=== PATIENT | male | born 2000 | race Caucasian/White ===

== ENCOUNTER 2022-09-25 17:31 | Emergency (ER) | payer OTHER, MEDICAID, SELFPAY ==
[2022-09-25] VITALS (17 sets, daily range): BP systolic 98–133; BP diastolic 52–78; PULSE 82–100; RESP 9–23; TEMP 36.4; O2SAT 94–100; BMI 25.2
[2022-09-25] MEDS: SODIUM CHLORIDE 0.9% 1,000 ML 1000 ML IV (18:03)
[2022-09-25 18:08] LABS: Add Manual Diff / Slide Review NO; Basophils Absolute Auto 100 /uL (0-100); Basophils Percent Auto 0.4 % (0-2); Eosinophils Absolute Auto 200 /uL (0-450); Eosinophils Percent Auto 1.6 % (2-4); Hematocrit 49.6 % (41-53); Hemoglobin 16.5 g/dL (13.5-17.5); Lymphocytes Absolute Auto 7700 /uL (1100-4500); Lymphocytes Percent Auto 50.3 % (25-40); Mean Corpuscular HGB Conc 33.4 % (30-36); Mean Corpuscular Volume 89.9 fL (80-100); Monocytes Absolute Auto 1600 /uL (0-900); Monocytes Percent Auto 10.7 % (3-14); Neutrophils Absolute Auto 5700 /uL (1500-7000); Platelet Count 433 X10^3/uL (150-400); Red Blood Cell Count 5.51 X10^6/uL (4.5-5.9); Red Cell Distribution Width 13.1 % (11.6-14.8); White Blood Cell Count 15.4 X10^3/uL (4.5-11.0)
[2022-09-25 18:14] LABS: Acetaminophen < 10 ug/mL (10-30); Alanine Aminotransferase 48 IU/L (<50); Albumin 5.5 g/dL (3.5-5.0); Albumin Globulin Ratio 1.4 (1.0-2.8); Alkaline Phosphatase 78 U/L (38-126); Aspartate Aminotransferase 39 IU/L (17-59); BUN Creatinine Ratio 10.3 (6-22); Bilirubin Total 0.6 mg/dL (0.2-1.3); Blood Urea Nitrogen 11 mg/dL (9-20); Calcium 9.6 mg/dL (8.4-10.2); Carbon Dioxide 15 mmol/L (22-32); Chloride 99 mmol/L (98-107); Estimated Glomerular Filt Rate > 60 mL/min (>60); Ethanol (ETOH) < 10 mg/dL; Globulin 3.9 g/dL (1.7-4.1); Glucose 115 mg/dL (70-100); HEMOLYSIS < 15 (0-50); Potassium 3.4 mmol/L (3.4-5.1); Salicylate < 1.0 mg/dL (<20); Sodium 144 mmol/L (137-145); Total Protein 9.4 g/dL (6.3-8.2)
--- NOTE | 2022-09-25 18:45 | CM.SWNOTE ---
Addendum entered by IAN Bentley 09/25/22 20:22: SW discussed voluntary hospitalization with pt and at first he reported that he wanted to go. SW called several facilities; [facility], [facility], [facility], [facility], and [facility] and was instructed to send packet in. SW met with pt again to provide update and pt believes that he can keep himself safe at home. SW met with SO, pt's father, and pt together and they are agreeable to returning home with a plan to go to ED if pt becomes suicidal again. Pt's SO and father will be around patient 24/7 and are willing to monitor. SW discussed with ED provider, who agrees with plan for pt to discharge home with a plan to return to ED if SI returns. IAN Bentley Original Note: STAFF SONOGRAPHER - Forepart Rounder Assessment STAFF SONOGRAPHER - Forepart Rounder Assessment Start: 09/25/22 18:34 Freq: Status: Active Protocol: Document 09/25/22 18:34 TM (Rec: 09/25/22 18:45 TM [id number]) STAFF SONOGRAPHER/Forepart Rounder Assessment Time Spent with Patient Start date 09/25/22 Visit Start Time 18:15 End date 09/25/22 Visit End Time 18:35 Mental Health Screening Include Onset, Duration, Intensity Presenting Problem Pt is 22 year old male with history of epilepsy and depression who reports to ED following a seizure. During nursing triage, pt reported suicidal ideation. Precipitating Event(s) Pt reports that his neurologist started him on lamotrigine for seizures and mood stabilization. Pt reports that approximately two weeks ago he felt extremely depressed, which is attributes partly to stress. Approximately 2 weeks ago pt felt suicidal and had a plan to hang himself. Pt reports that he tied a knot in a rope and had it around his neck but felt scared and did not follow through. Patient Strengths supportive family and significant other. Current Behavioral Health Provider(s) none. Neurologist prescribes Include Facility, Provider, Ph. # mood stabilizier. Psych. 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 Pt denies recreational substance use. Pt reports that he uses marijuana for seizures but he hasn't taken any in 5 days. Family Hx of Behavioral Abuse Pt denies. Psychiatric Hospitalizations (date(s)/ Pt reports that he was location) hospitalized voluntarily at a psychiatric hospital in 2020 for 4-5 days. Pt does not recall name of the facility. Psychosocial information & Support Pt has supportive parents and Systems SO. 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 Mental Status Orientation (Person/Place/Time) Pt oriented to person, place, and time. Stated Mood Pt reports that depression is off and on but he is no longer suicidal. Affect (Congruent with Mood?) Broad, congruent with mood. Thought Content - Specify/Describe Denies AH or VH. Obsessions, Delusions, Hallucinations Thought Processes (Ibtwpyo-Omccumna-Zvqd Logical. Phemkxgi-Koozzjnx-Wwsksjacny- Taiebqwvobnxvm-Vrsbezv-Tszrxbjmzloh- Thought Blocking) Speech (Wfcjev-Nkkb-Dqnjnco-Rapid-Soft- normal. Loud-Pressured) Motor (Vqhjgw-Mbfbamfcn-Bwxj-Other) normal. Insight (Uqov-Pqtj-Iine/Limited) Fair. Judgement (Kfir-Mpxf-Ysdm/Limited) Fair. Impulse Control (Adequate-Impaired) not tested. Memory (Bsvkimnzg-Ojbvuv-Yrvhnu, immediate - not formally Impaired-Intact) tested. Concentration (Intact-Impaired) intact. Attention (Intact-Impaired) intact. Behavior (Appropriate-Inappropriate) appropriate. Risk Assessment Suicidal Ideation (Plan) No Homicidal Ideation (Plan) No Intervention Intervention SW met pt and his SO at bedside to initiate MH evaluation. Pt reports that he is not currently feeling suicidal and that his depression is off and on. Pt denies substance abuse. Pt reports that he does not have access to weapons. Pt lives with his SO and parents. At this time, pt feels like he can keep himself safe. Pt reports that he has done voluntary inpatient psychiatric hospitalization in the past and that helped a lot. Pt reports that he wants to think about whether or not he wants to pursue psychiatric hospitalization a bit more. Plan RA Plan SW will provide outpatient MH resources. Once pt is medically clear, SW reimbursement coordinator will assess pt's safety and ask if he would like to pursue psychiatric hospitalization. Luna Abdi MSW
[2022-09-25] MEDS: LORazepam 2 MG/ML INJ 1 MG IV (19:01)
--- NOTE | 2022-09-25 19:02 | ED_ITS ---
HPI - Seizure General Chief Complaint: Seizure Stated Complaint: Seizure Time Seen by Provider: 09/25/22 17:52 Source: EMS Mode of arrival: EMS History of Present Illness HPI Narrative: Patient is a 22-year-old male history of seizures on direct CT ongoing mental health issues as well presents today after seizure. He states his seizures are usually small tremors typically well controlled. However he does have seizures likely triggered if he lack of sleep and lack of food. 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 He had a witnessed full tonic clonic seizure he has a chin laceration. He was postictal all. [facility] He has not missed any medications. He has a neurologist to follows with him at [facility]. He states that he does have chronic ongoing suicidal. 2 weeks ago he attempted hanging and noose around his neck. He does not have thoughts today all but feels like his thoughts are increasing. Is interested in involuntary placement. He does not have outpatient counseling therapy set up. He is on a seizure medicine which is also a mood stabilizer. Related Data Home Medications Medication Instructions Recorded Confirmed brivaracetam 50 mg tablet 50 mg PO DAILY 09/25/22 09/25/22 (Briviact) brivaracetam 50 mg tablet 100 mg PO BEDTIME 09/25/22 09/25/22 (Briviact) lamotrigine 100 mg tablet 200 mg PO BID 09/25/22 09/25/22 Allergies Allergy/AdvReac Type Severity Reaction Status Date / Time divalproex sodium AdvReac Severe Other Verified 09/25/22 18:02 [From [facility]] Review of Systems Review of Systems Narrative: GENERAL: Denies chills, fatigue, malaise, fever, sweats, travel HEENT: Denies sinus pain, ear pain, sore throat, difficulty swallowing, neck pain RESPIRATORY: Denies dyspnea, cough, wheezing, hemoptysis, sputum. CARDIOVASCULAR: Denies chest pain, palpitations, orthopnea, edema GASTROINTESTINAL: Denies nausea, vomiting, abdominal pain, diarrhea, constipation, melena. : Denies dysuria, frequency, incontinence, hematuria, urinary retention, flank pain. MUSCULOSKELETAL: Denies weakness, joint pain, or bony pain SKIN: Chin laceration NEUROLOGIC: Seizure PSYCHIATRIC: No concerning psychosocial issues. 12 point review of systems is negative except for those stated above and HPI Patient History Social History Smoking Status: Never smoker Smoking Status: Never smoker Substance Use Type: marijuana Exam Initial Vital Signs Initial Vital Signs: Vital Signs Temperature 97.5 F L 09/25/22 17:33 Pulse Rate 97 H 09/25/22 17:33 Respiratory Rate 17 09/25/22 17:33 Blood Pressure 120/75 09/25/22 17:33 Pulse Oximetry 100 09/25/22 17:33 Oxygen Delivery Method 09/25/22 17:33 GENERAL: Alert well-appearing 22-year-old male HEENT: Head atraumatic,EOMI, pupils reactive, face symmetric, moist mucous membranes, no tongue injury complaining of chin pain able to bite down on popsicle stick teeth line no obvious facial fracture CARDIOVASCULAR: Regular rate and rhythm without murmurs, rubs or gallops. RESPIRATORY: Breath sounds equal bilaterally, no wheezes rales or rhonchi. ABDOMEN: Soft, nontender. Normoactive bowel sounds all 4 quadrants. No guarding or rebound. EXTREMITIES: Normal range of motion, no clubbing or edema. Neurovascularly intact NEUROLOGICAL: Alert and oriented x4.Normal gait and speech. Nib Finisher strength equal bilaterally SKIN: To cm chin laceration Procedures Laceration Repair Laceration 1: Site: face (chin) Size (cm): 2 Depth: simple, single layer Local Anesthetic: lidocaine 2% Skin layer closed with: nylon Skin layer suture size: 4-0 Number of sutures: 2 Course Orders Ordered: ED Orders 09/25/22 20:40 XR mandible min 4V Stat Discontinued Medications Sodium Chloride (Normal Saline 0.9%) 1,000 mls @ 1,000 mls/hr IV BOLUS ONE Stop: 09/25/22 18:51 Last Infusion: 09/25/22 18:57 Dose: 0 mls/hr Documented By: Admin: 09/25/22 18:03 Dose: 1,000 mls/hr Documented By: RL Ketorolac Tromethamine (Ketorolac 30 Mg/Ml Vial) 15 mg IV NOW ONE Stop: 09/25/22 20:43 Last Admin: 09/25/22 20:48 Dose: 15 mg Documented By: CTS Lidocaine HCl (Lidocaine 1% (Pf)) 2 ml SUBCUT NOW ONE Stop: 09/25/22 19:04 Last Admin: 09/25/22 19:32 Dose: Not Given Documented By: RL Lidocaine HCl (Lidocaine 2% Inj Sdv) 10 ml INJ INTRA-OP ONE Stop: 09/25/22 19:29 Last Admin: 09/25/22 19:32 Dose: 5 ml Documented By: RL Lorazepam (Lorazepam 2 Mg/Ml Inj) 1 mg IV NOW ONE Stop: 09/25/22 18:59 Last Admin: 09/25/22 19:01 Dose: 1 mg Documented By: RL Vital Signs Vital signs: Vital Signs - 8 hr 09/25/22 17:33 09/25/22 17:46 09/25/22 17:55 Temperature 97.5 F L Pulse Rate 97 H 92 H 82 Respiratory Rate 17 14 12 Blood Pressure 120/75 Pulse Oximetry 100 98 97 Oxygen Delivery Method Room Air 09/25/22 17:55 09/25/22 18:00 09/25/22 18:30 Temperature Pulse Rate 84 83 Respiratory Rate 23 12 Blood Pressure 121/78 Pulse Oximetry 99 99 Oxygen Delivery Method 09/25/22 18:45 09/25/22 18:45 09/25/22 19:00 Temperature Pulse Rate 84 Respiratory Rate 19 Blood Pressure 116/76 116/72 Pulse Oximetry 99 Oxygen Delivery Method 09/25/22 19:00 Temperature Pulse Rate 87 Respiratory Rate 12 Blood Pressure Pulse Oximetry 100 Oxygen Delivery Method MDM - Seizure Lab Data Result diagrams: 09/25/22 17:45 09/25/22 17:45 Labs: Lab Results 09/25/22 09/25/22 09/25/22 Range/Units 17:45 17:45 17:45 WBC 15.4 H (4.5-11.0) X10^3/uL RBC 5.51 (4.5-5.9) X10^6/uL Hgb 16.5 (13.5-17.5) g/dL Hct 49.6 (41-53) % MCV 89.9 (80-100) fL MCH 30.0 (26-34) PG MCHC 33.4 (30-36) % RDW 13.1 (11.6-14.8) % Plt Count 433 H (150-400) X10^3/uL Neut % (Auto) 37.0 L (50-75) % Lymph % (Auto) 50.3 H (25-40) % [place] % (Auto) 10.7 (3-14) % Eos % (Auto) 1.6 L (2-4) % Baso % (Auto) 0.4 (0-2) % Neut # (Auto) 5700 (3000-5257) /uL Lymph # (Auto) 7700 H (5912-1452) /uL [place] # (Auto) 1600 H (0-900) /uL Eos # (Auto) 200 (0-450) /uL Baso # (Auto) 100 (0-100) /uL Sodium 144 (137-145) mmol/L Potassium 3.4 (3.4-5.1) mmol/L Chloride 99 (98-107) mmol/L Carbon Dioxide 15 L (22-32) mmol/L BUN 11 (9-20) mg/dL Creatinine 1.07 (0.66-1.25) mg/dL Estimated GFR > 60 (>60) mL/min BUN/Creatinine Ratio 10.3 (6-22) Glucose 115 H (70-100) mg/dL Calcium 9.6 (8.4-10.2) mg/dL Total Bilirubin 0.6 (0.2-1.3) mg/dL AST 39 (17-59) IU/L ALT 48 (<50) IU/L Alkaline Phosphatase 78 (38-126) U/L Total Protein 9.4 H (6.3-8.2) g/dL Albumin 5.5 H (3.5-5.0) g/dL Globulin 3.9 (1.7-4.1) g/dL Albumin/Globulin Ratio 1.4 (1.0-2.8) Prolactin 35.5 H (3.7-17.9) ng/mL Urine Color Urine Appearance Urine pH (4.5-8.0) Ur Specific [place] (1.000-1.035) Urine Protein (Negative) Urine Glucose (UA) (Negative) g/dL Urine Ketones (NEGATIVE) Urine Occult Blood (Negative) Urine Nitrate (Negative) Urine Bilirubin (NEGATIVE) Urine Urobilinogen (0.2) E.U./dL Ur Leukocyte Esterase (NEGATIVE) Urine RBC (0-5/HPF) Urine WBC (0-5/HPF) Urine Bacteria (None) Hyaline Casts (None) Urine Sperm Ur Culture Indicated? Salicylates < 1.0 (<20) mg/dL U Opiates 300ng/mL cut (Negative) Ur Oxycodone Screen (Negative) Urine Methadone Screen (Negative) Acetaminophen < 10 (10-30) ug/mL Ur Barbiturates Screen (Negative) U Tricyclic Antidepress (Negative) Ur Phencyclidine Scrn (Negative) Ur Amphetamines Screen (Negative) U Methamphetamines Scrn (Negative) Ur MDMA Scrn (Ecstasy) (Negative) U Benzodiazepines Scrn (Negative) Urine Cocaine Screen (Negative) U Marijuana (THC) Screen (Negative) Ethyl Alcohol < 10 ( - 10) mg/dL SARS-CoV-2 (PCR) (Negative) 09/25/22 09/25/22 09/25/22 Range/Units 20:07 20:07 20:13 WBC (4.5-11.0) X10^3/uL RBC (4.5-5.9) X10^6/uL Hgb (13.5-17.5) g/dL Hct (41-53) % MCV (80-100) fL MCH (26-34) PG MCHC (30-36) % RDW (11.6-14.8) % Plt Count (150-400) X10^3/uL Neut % (Auto) (50-75) % Lymph % (Auto) (25-40) % [place] % (Auto) (3-14) % Eos % (Auto) (2-4) % Baso % (Auto) (0-2) % Neut # (Auto) (2703-0610) /uL Lymph # (Auto) (3627-4191) /uL [place] # (Auto) (0-900) /uL Eos # (Auto) (0-450) /uL Baso # (Auto) (0-100) /uL Sodium (137-145) mmol/L Potassium (3.4-5.1) mmol/L Chloride (98-107) mmol/L Carbon Dioxide (22-32) mmol/L BUN (9-20) mg/dL Creatinine (0.66-1.25) mg/dL Estimated GFR (>60) mL/min BUN/Creatinine Ratio (6-22) Glucose (70-100) mg/dL Calcium (8.4-10.2) mg/dL Total Bilirubin (0.2-1.3) mg/dL AST (17-59) IU/L ALT (<50) IU/L Alkaline Phosphatase (38-126) U/L Total Protein (6.3-8.2) g/dL Albumin (3.5-5.0) g/dL Globulin (1.7-4.1) g/dL Albumin/Globulin Ratio (1.0-2.8) Prolactin (3.7-17.9) ng/mL Urine Color Yellow Urine Appearance Clear Urine pH 7.0 (4.5-8.0) Ur Specific [place] 1.020 (1.000-1.035) Urine Protein 1+ H (Negative) Urine Glucose (UA) Negative (Negative) g/dL Urine Ketones Negative (NEGATIVE) Urine Occult Blood Negative (Negative) Urine Nitrate Negative (Negative) Urine Bilirubin Negative (NEGATIVE) Urine Urobilinogen 0.2 (0.2) E.U./dL Ur Leukocyte Esterase Trace H (NEGATIVE) Urine RBC None seen (0-5/HPF) Urine WBC 5-10/hpf H (0-5/HPF) Urine Bacteria None seen (None) Hyaline Casts 5-10/lpf (None) Urine Sperm Few seen Ur Culture Indicated? Specimen cultured Salicylates (<20) mg/dL U Opiates 300ng/mL cut Negative (Negative) Ur Oxycodone Screen Negative (Negative) Urine Methadone Screen Negative (Negative) Acetaminophen (10-30) ug/mL Ur Barbiturates Screen Negative (Negative) U Tricyclic Antidepress Negative (Negative) Ur Phencyclidine Scrn Negative (Negative) Ur Amphetamines Screen Negative (Negative) U Methamphetamines Scrn Negative (Negative) Ur MDMA Scrn (Ecstasy) Negative (Negative) U Benzodiazepines Scrn Negative (Negative) Urine Cocaine Screen Negative (Negative) U Marijuana (THC) Screen Positive H (Negative) Ethyl Alcohol ( - 10) mg/dL SARS-CoV-2 (PCR) Negative (Negative) Imaging Data Extremity x-ray #1: Radiologist's Impression: Signed Patient: Saira Cheung MR#: [id number] : 2000 Acct:[id number] Age/Sex: 22 / M Date of Service: 09/25/22 Loc: ED Accession Number: [id number] ?? Procedure: XR mandible min 4V Ordering Provider: Marichuy Vergara D.O. PROCEDURE:? XR MANDIBLE MIN 4V ? INDICATIONS:? pain ? TECHNIQUE:? 4 views of the mandible were acquired.? ? COMPARISON:? None. ? FINDINGS:? ? Bones:? No fractures or dislocations.? No suspicious bony lesions.? ? Soft tissues:? Visualized sinuses appear clear.? No suspicious soft tissue densities.? ? IMPRESSION:? Source of pain not seen. ? ? Dictated by: René Lopez M.D. on 09/25/2022 at 21:18 ?? MDM Narrative Medical decision making narrative: Patient is a history of seizures induced from insomnia and not eating. She is he clearly had seizure today is laceration in his chin which is easily sutured is. I was called to bedside stating that he was having a seizure. He was awake and alert and stating that he was having some twitching. I did not appreciate any twitching. His not sure that he is having a seizure now. He is given 1 dose of Ativan. His at this time he will need to follow-up with his neurologist regards to his seizure but also encouraged him to sleep and eat regularly. Patient states increasing suicidal thoughts some not currently suicidal not going to act on it was interested in possibly voluntary placement. Would like to see a therapist and get some help unfortunate weight is not on any waiting list. Social work is was not see and evaluate. Attempted is placement however they did not want a wait until we heard back. Patient can contract for safety he has good support at home. At this time he does not meet involuntary criteria, he may be difficult to place due to his recent seizure any way. Discharge Plan Departure Patient Disposition: Home Clinical Impression: Seizure, Suicidal ideation, Laceration Instructions: DI for Seizure Disorder -- Adult, DI for Laceration Repair, DI for Suicidal Ideation-Adult Activity Restrictions/Additional Instructions: DO NOT DRIVE UNTIL CLEARED BY NEUROLOGY *You have been diagnosed with seizure suicidal ideation *What to do: At this time please be sure you eat and sleep regularly see you do not have another seizure. Please continue taking medications as previously prescribed. Discussed with your neurologist if you should need any change in those medications. Please have sutures removed in 5-7 days. May apply antibiotic ointment. No swimming no shaving If you are feeling suicidal or having suicidal thoughts: Call: Suicide Hotline: 795 Visit: www.[facility].com.org Text: 171039 *Continue to take medications as directed *Follow up with your primary care provider in 2-3 days or call [phone] *Return to ER if you should have recurrent seizure thoughts of harming self, or any new, worsening or concerning symptoms Prescriptions: No Action lamotrigine 100 mg tablet 200 mg PO BID Briviact 50 mg tablet 50 mg PO DAILY Briviact 50 mg tablet 100 mg PO BEDTIME Visit Report Forms: Patient Portal/API
--- NOTE | 2022-09-25 19:03 | PC.NURSE ---
Addendum entered by Oksana Aguilera CNA 09/25/22 19:15: patients mother and girlfriend are at bedside Original Note: this CORPORATE TRAINER took over 1:1 monitoring of patient at 1900
[2022-09-25] MEDS: LIDOCAINE 2% INJ SDV 10 ML INJ (19:32)
[2022-09-25 19:44] LABS: Prolactin 35.5 ng/mL (3.7-17.9)
[2022-09-25 20:18] LABS: Appearance Urine UA CLEAR; Bilirubin Urine UA NEGATIVE (NEGATIVE); Color Urine UA YELLOW; Glucose Urine UA NEGATIVE (Negative); Ketones Urine UA NEGATIVE (NEGATIVE); Leukocyte Esterase Urine UA TRACE (NEGATIVE); Nitrite Urine UA NEGATIVE (Negative); Occult Blood Urine UA NEGATIVE (Negative); Protein Urine UA 1+ (Negative); Urobilinogen Urine UA 0.2 E.U./dL (0.2)
[2022-09-25 20:25] LABS: UR Morphine/Opiate cutoff 300 Negative (Negative); Ur Creatinine Normal (Normal); Ur Specific Gravity Normal (Normal); Urine Amphetamines Negative (Negative); Urine Barbiturates Negative (Negative); Urine Benzodiazepines Negative (Negative); Urine Cocaine Negative (Negative); Urine MDMA Negative (Negative); Urine Methadone Negative (Negative); Urine Methamphetamines Negative (Negative); Urine Oxycodone Negative (Negative); Urine Phencyclidine Negative (Negative); Urine Tetrahydrocannabinol Positive (Negative); Urine Tricyclic Antidepressant Negative (Negative); Urine pH Normal (Normal)
[2022-09-25 20:28] LABS: RBC Urine None Seen (0-5/HPF); WBC Urine 5-10/HPF (0-5/HPF)
[2022-09-25 20:29] LABS: Bacteria Urine None Seen; Culture Indicated Urine Specimen Cultured; Hyaline Casts Urine 5-10/LPF
[2022-09-25 20:38] LABS: COVID19 -Nasal RAPID Negative (Negative)
--- NOTE | 2022-09-25 20:40 | DI.RAD.S_ITS ---
PROCEDURE: XR MANDIBLE MIN 4V INDICATIONS: pain TECHNIQUE: 4 views of the mandible were acquired. COMPARISON: None. FINDINGS: Bones: No fractures or dislocations. No suspicious bony lesions. Soft tissues: Visualized sinuses appear clear. No suspicious soft tissue densities. IMPRESSION: Source of pain not seen. Dictated by: René Lopez M.D. on 09/25/2022 at 21:18 Approved by: René Lopez M.D. on 09/25/2022 at 21:19
[2022-09-25] MEDS: KETOROLAC 30 MG/ML VIAL 15 MG IV (20:48)
== END 2022-09-25 22:00 | disposition home or self-care (01) ==
PROVIDERS: Emergency Provider Emergency Medicine
DX: G40.909 Epilepsy, unspecified, not intractable, without status epilepticus (principal); S01.81XA Laceration without foreign body of other part of head, initial encounter; R45.851 Suicidal ideations; W18.00XA Striking against unspecified object with subsequent fall, initial encounter; Z20.822 Contact with and (suspected) exposure to COVID-19
CPT/HCPCS: 12011; 36415; 70110; 80053; 80305; 80320; 80329; 81001; 84146; 85025; 87086; 87635; 96361; 96374; 96375; 99284; C9803; G0480; J1885; J2060